=== PATIENT | female | born 1985 | race Two or more races ===

== ENCOUNTER 2021-07-05 16:32 | Emergency (ER) | payer OTHER ==
[~2021-07-05] VITALS: Ht 157.5 cm; Wt 47.6 kg
[2021-07-05] MEDS ORDERED: ZYRTEC10 MG PO (19:08)
[2021-07-05] MEDS ORDERED: TUSNEL LIQUID178 ML PO (19:08)
== END 2021-07-05 19:12 | disposition home or self-care (01) ==
LOC: ER 16:32
DX: B34.9 Viral infection, unspecified (principal); R09.81 Nasal congestion; Z03.818 Encounter for observation for suspected exposure to other biological agents ruled out